=== PATIENT | female | born 1980 ===

== ENCOUNTER 2017-03-01 14:53 | Outpatient (CLI) | payer MEDICAID | END 2017-03-01 14:54 | disposition home or self-care (01) | LOC: LABHHL 14:53 | PROVIDERS: ATTEND Otolaryngology | DX: J32.9 Chronic sinusitis, unspecified (principal); J03.90 Acute tonsillitis, unspecified; J35.2 Hypertrophy of adenoids | CPT/HCPCS: 88304 ==